=== PATIENT | male | born 1990 | race Hispanic/Latino ===

== ENCOUNTER 2017-10-20 19:52 | Emergency (ER) | payer OTHER ==
[2017-10-20 20:14] VITALS: BP 145/84; PULSE 66; TEMP 97.6; O2SAT 99
[2017-10-20] MEDS ORDERED: Oxycodone/Acetaminophen 5/325 mg Tab PO STA (20:42)
--- NOTE | 2017-10-20 20:48 | C.PDOC ---
History Of Present Illness 27 year old male presents to the ED complaining of dental pain. States hes had nagging pain for past couple of days. Today he was eating pizza when he suddenly felt increased pain. Has appointment booked with dentist tomorrow. Took OTC pain medications with no relief so came here for further evaluation. PMD: None Time Seen by Provider: 10/20/17 20:18 Chief Complaint (Nursing): Dental Pain History Per: Patient History/Exam Limitations: no limitations Onset/Duration Of Symptoms: Days (x3) Current Symptoms Are (Timing): Worse Past Medical History Reviewed: Historical Data, Nursing Documentation, Vital Signs Vital Signs: Last Vital Signs Temp 97.6 F 10/20/17 20:11 Pulse 66 10/20/17 20:11 Resp 20 10/20/17 21:23 BP 145/84 10/20/17 20:11 Pulse Ox 99 10/20/17 21:40 - Medical History PMH: Asthma Other Surgeries: Left knee surgery Family History: States: No Known Family Hx - Social History Hx Alcohol Use: Yes Hx Substance Use: No Review Of Systems Except As Marked, All Systems Reviewed And Found Negative. Constitutional: Negative for: Fever, Chills ENT: Positive for: Other (Dental pain) Physical Exam - Physical Exam Appears: Non-toxic, No Acute Distress Skin: Warm, Dry Head: Atraumatic, Normacephalic Eye(s): bilateral: Normal Inspection, EOMI Nose: Normal Oral Mucosa: Moist Teeth: Caries (Large nguyễn and tenderness to the right mandibular molar) Gingiva: Normal Appearing, No Erythema, No Swelling, No Abscess, No Other ( fluctuance) Throat: Normal Neck: Normal ROM, Supple Neurological/Psych: Oriented x3, Normal Speech ED Course And Treatment O2 Sat by Pulse Oximetry: 99 (RA) Pulse Ox Interpretation: Normal Progress Note: Patient given 1 tab Percocet for pain and initial dose of Amoxicillin, 500 mg PO, in the ED. Also treated with viscous Lidocaine 2%. Advised patient to follow up with dentist as scheduled. Disposition Counseled Patient/Family Regarding: Diagnosis, Need For Followup, Rx Given - Disposition Disposition: HOME/ ROUTINE Disposition Time: 20:48 Condition: STABLE Additional Instructions: Follow up with dentist as scheduled tomorrow. Prescriptions: Acetaminophen with Codeine [Tylenol with Codeine No. 3 300 mg-30 mg] 1 tab PO Q4 PRN #10 tab PRN Reason: Pain, Moderate (4-7) Amoxicillin 875 mg PO BID #14 tablet Benzocaine 7.5% [Orajel] 1 gel MM TID #1 tube Instructions: Dental Pain (DC) Forms: [facility] (Irish) - POA Present On Arrival: None - Clinical Impression Clinical Impression: Pain, dental - PA / [employer] / Resident Statement MD/DO has reviewed & agrees with the documentation as recorded. - Scribe Statement The provider has reviewed the documentation as recorded by the Scribe (Martha Bingham) All medical record entries made by the Scribe were at my direction and personally dictated by me. I have reviewed the chart and agree that the record accurately reflects my personal performance of the history, physical exam, medical decision making, and the department course for this patient. I have also personally directed, reviewed, and agree with the discharge instructions and disposition.
[2017-10-20] MEDS ORDERED: Oxycodone/Acetaminophen 5/325 mg Tab ONE (20:49)
[2017-10-20 21:24] VITALS: RESP 20
== END 2017-10-20 21:23 | disposition home or self-care (01) ==
LOC: C.ER 19:52
DX: K08.89 Other specified disorders of teeth and supporting structures (principal)